=== PATIENT | male | born 1990 | race Hispanic/Latino ===

== ENCOUNTER 2018-09-06 10:00 | Emergency (ER) | payer SELFPAY ==
[~2018-09-06] VITALS: Ht 172.7 cm; Wt 59.0 kg
[2018-09-06] MEDS ORDERED: ULTRAM50 M1 PO (10:39)
[2018-09-06] MEDS ORDERED: AMOXICILLIN500 MG PO (10:39)
[2018-09-06 11:13] VITALS: BP 150/88
== END 2018-09-06 11:35 | disposition home or self-care (01) | DRG 914 ==
LOC: ED 10:00
DX: S81.841A Puncture wound with foreign body, right lower leg, initial encounter (principal); F17.200 Nicotine dependence, unspecified, uncomplicated; W32.0XXA Accidental handgun discharge, initial encounter; Y93.89 Activity, other specified; Y92.89 Other specified places as the place of occurrence of the external cause

== ENCOUNTER 2022-04-14 12:04 | Emergency (ER) | payer OTHER ==
[~2022-04-14] VITALS: Ht 172.7 cm; Wt 59.0 kg
[~2022-04-14 12:04] MED LIST: AMOXICILLIN500 MG PO; ULTRAM50 M1 PO
[2022-04-14 13:11] VITALS: BP 127/83
[2022-04-14 13:30] VITALS: BP 123/85
[2022-04-14 14:00] VITALS: BP 118/82
[2022-04-14 14:30] VITALS: BP 122/80
[2022-04-14 14:48] VITALS: BP 122/80
== END 2022-04-14 14:48 | disposition home or self-care (01) | DRG 556 ==
LOC: ED 12:04
DX: M25.561 Pain in right knee (principal); F17.210 Nicotine dependence, cigarettes, uncomplicated; W01.0XXA Fall on same level from slipping, tripping and stumbling without subsequent striking against object, initial encounter